=== PATIENT | female | born 1970 | race African-American/Black ===

== ENCOUNTER 2023-05-18 14:48 | Emergency (ER) | payer SELFPAY ==
[~2023-05-18] VITALS: Ht 162.6 cm; Wt 60.0 kg
[2023-05-18 14:58] VITALS: O2SAT 98
[2023-05-18] MEDS ORDERED: ACETAMINOPHEN 325MG TABLET PO STA (15:53)
[2023-05-18 16:08] LABS: BASOPHILS % 0.2 % (0.0-2.0); EOSINOPHILS % 0.5 % (0.0-5.0); HEMATOCRIT. 38.6 % (36.0-48.0); HEMOGLOBIN. 12.6 g/dL (12.0-16.0); LYMPHOCYTES % 17.7 % (20.0-50.0); MEAN CORPUSCULAR HEMOGLOBIN 28.2 pg (28.0-32.0); MEAN CORPUSCULAR HGB CONC 32.6 g/dL (31.0-37.0); MEAN CORPUSCULAR VOLUME 86.5 fL (81.0-99.0); MEAN PLATELET VOLUME 10.5 fl (7.4-10.4); MONOCYTES % 7.4 % (2.0-8.0); NEUTROPHILS % 74.2 % (40.0-76.0); PLATELET 199 x1000/uL (130-400); RED BLOOD CELL COUNT 4.47 mill/uL (4.2-5.4); WHITE BLOOD COUNT 9.8 x1000/uL (4.5-11.0)
[2023-05-18 16:25] LABS: CHLORIDE 106 mEq/L (98-107); INDEX HEMOLYSI 1 (1-3); INDEX ICTERIC 1 (1-4); INDEX LIPEMIC 1 (1-3); POTASSIUM 3.7 mEq/L (3.5-5.1); SODIUM 142 mEq/L (136-145); UREA NITROGEN BLOOD 15 mg/dL (7-21)
[2023-05-18 16:42] LABS: ALANINE AMINOTRANSFERASE 64 IU/L (13-61); ALBUMIN 3.5 g/dL (3.4-5.0); ASPARTATE AMINOTRANSFERASE 30 IU/L (15-37); BILIRUBIN TOTAL 0.5 mg/dL (0.1-1.0); CALCIUM 10.4 mg/dL (8.5-10.1); CARBON DIOXIDE 31 mEq/L (21-32); CREATININE 0.5 mg/dL (0.6-1.3); GLUCOSE 114 mg/dL (70-105); PROTEIN TOTAL 7.9 g/dL (6.0-8.3); TROPONIN I HIGH SENSITIVITY 4 ng/L (<54)
[2023-05-18] MEDS ORDERED: SODIUM CHLORIDE 0.9% 1,000 ML IV ONE (19:45)
[2023-05-18] MEDS ORDERED: METOCLOPRAMIDE HCL 10MG/2ML VIAL IV ONE (19:45)
[2023-05-18 22:04] VITALS: BP 145/81; PULSE 69; RESP 15; TEMP 98.2
== END 2023-05-18 22:46 | disposition home or self-care (01) ==
LOC: ER 15:03
DX: R09.1 Pleurisy (principal)
CPT/HCPCS: 80053; 85025; 85379; 84484; 36415; 71045; 70450; 93005; 96361; 96374; 99285; J2765; J7030; Z7610 ×4